=== PATIENT | male | born 1955 | race Caucasian/White ===

== ENCOUNTER 2024-11-09 13:47 | Emergency (ER) | payer SELFPAY ==
[~2024-11-09] VITALS: Ht 172.7 cm; Wt 72.0 kg
[2024-11-09 15:20] LABS: URINE BLOOD DIPSTICK Large (NEGATIVE); URINE GLUCOSE - DIPSTICK Negative (NEGATIVE); URINE KETONE Trace mg/dL (NEGATIVE); URINE LEUK ESTERASE Negative (NEGATIVE); URINE NITRITE - DIPSTICK Negative (Negative); URINE PH 5.5 (4.5-8.0); URINE PROTEIN - DIPSTICK 30 mg/dL (NEG-TRACE); URINE SPECIFIC GRAVITY >=1.030; URINE UROBILINOGEN - DIPSTICK 0.2 E.U./dL (0.2)
[2024-11-09 15:21] LABS: URINE COLOR Yellow
[2024-11-09 15:29] LABS: URINE BACTERIA FEW hpf; URINE RBC 25-50 RBC/hpf (0-5)
[2024-11-09 15:30] LABS: URINE CALCIUM OXALATE CRYSTALS MODERATE lpf; URINE WBC 0-2 WBC/hpf (0-5)
[2024-11-09] MEDS ORDERED: BACTRIM DS1 TAB PO (15:52)
[2024-11-09 16:23] VITALS: BP 135/77
== END 2024-11-09 16:24 | disposition home or self-care (01) | DRG 690 ==
LOC: ED 13:47
PROVIDERS: Nurse Practitioner Family
DX: N39.0 Urinary tract infection, site not specified (principal); Z87.440 Personal history of urinary (tract) infections